=== PATIENT | female | born 1980 | race Caucasian/White ===

== ENCOUNTER 2016-05-30 18:36 | Emergency (ER) | payer OTHER ==
[~2016-05-30] VITALS: Ht 160 cm; Wt 134.7 kg
[~2016-05-30 18:36] MED LIST: AMOXIL500 MG PO; MOTRIN800 MG PO; OXYCODONE HCL10 MG PO; PREDNISONE20 MG PO; PROZAC40 MG PO; VENTOLIN HFA8 GM INH; WELLBUTRIN SR150 MG PO; WELLBUTRIN XL300 MG PO
[2016-05-30] MEDS ORDERED: OMNICEF300 MG PO (19:55)
[2016-05-30] MEDS ORDERED: MULTI COMPLETE1 EACH PO (19:57)
== END 2016-05-30 20:00 | disposition short-term general hospital (02) ==
LOC: ER 18:36
DX: S93.602A Unspecified sprain of left foot, initial encounter (principal); Z87.01 Personal history of pneumonia (recurrent); Z98.51 Tubal ligation status; Z98.890 Other specified postprocedural states; Z88.2 Allergy status to sulfonamides